=== PATIENT | female | born 1950 | race Hispanic/Latino ===

== ENCOUNTER 2025-08-28 13:11 | Emergency (ER) | payer MEDICARE ==
[~2025-08-28] VITALS: Ht 165.1 cm; Wt 64.0 kg
[2025-08-28] MEDS ORDERED: BENZOCAINE 20% SPR 60 ML CAN ONE (13:26)
[2025-08-28] MEDS ORDERED: NAPROXEN375 MG PO (14:03)
[2025-08-28 14:11] VITALS: PULSE 74; RESP 16; TEMP 98; O2SAT 95
== END 2025-08-28 14:11 | disposition home or self-care (01) ==
LOC: ER 13:14
DX: M62.838 Other muscle spasm (principal); M25.511 Pain in right shoulder; I10 Essential (primary) hypertension; E11.9 Type 2 diabetes mellitus without complications; E78.5 Hyperlipidemia, unspecified; E11.40 Type 2 diabetes mellitus with diabetic neuropathy, unspecified; M81.0 Age-related osteoporosis without current pathological fracture; N32.81 Overactive bladder
CPT/HCPCS: 99283